=== PATIENT | male | born 1965 | race Caucasian/White ===

== ENCOUNTER 2016-05-26 12:23 | Emergency (ER) | payer SELFPAY ==
[2016-05-26 12:39] VITALS: TEMP 97.5; BMI 24.3
--- NOTE | 2016-05-26 13:44 | PDOC ---
History of Present Illness - General History Source: Patient Exam Limitations: No Limitations - History of Present Illness Initial Comments: 05/26/16 14:08 The patient is a 51 year old male with no significant past medical history who presents to the ED with complaints of progressively worsening nausea for 2 months. The patient reports he was recently incarcerated and returned home on . The patient reports nausea, vomiting, and generalized weakness since returning home. The patient reports multiple episodes of vomiting with yellow colored sputum every day. The patient reports a loss of appetite and a weight loss of 5 pounds. Patient reports passing normal bowel movements. The patient reports he typically eats home cooked meals consisting of rice, beans, potatoes, vegetables and chicken. Denies fevers or chills. Denies abdominal pain, abdominal distention or diarrhea. Denies chest pain or shortness of breath. Denies dysuria or difficulty urinating. Denies any other symptoms. <Nitesh Tejada - Last Filed: 05/26/16 18:18> <Hans Brunson - Last Filed: 05/26/16 18:31> - General Chief Complaint: Nausea/Vomiting Stated Complaint: ABD PAIN, VOMITING Time Seen by Provider: 05/26/16 13:44 Past History <Nitesh Tejada - Last Filed: 05/26/16 18:18> - Past Medical History Anemia: No Asthma: No Cancer: No Cardiac Disorders: No CVA: No COPD: No CHF: No Dementia: No Diabetes: No GI Disorders: No Disorders: No HTN: No Hypercholesterolemia: No Kidney Stones: No Liver Disease: No Suicide Attempt (Hx): No Seizures: No Thyroid Disease: No Other medical history: DENIES. - Surgical History Abdominal Surgery: No Appendectomy: No Cardiac Surgery: No Cholecystectomy: No Lung Surgery: No Neurologic Surgery: No Orthopedic Surgery: No - Reproductive History Testicular Surgery: No - Psycho/Social/Smoking Cessation Hx Anxiety: No Suicidal Ideation: No Smoking History: Former smoker Have you smoked in the past 12 months: No Number of Cigarettes Smoked Daily: 5 Cigars Per Day: 0 Information on smoking cessation initiated: No 'Breaking Loose' booklet given: 08/04/13 Hx Alcohol Use: Yes Drug/Substance Use Hx: Yes Substance Use Type: Alcohol, Cocaine, Heroin Hx Substance Use Treatment: Yes (2011) <Hans Brunson - Last Filed: 05/26/16 18:31> - Past Medical History Allergies/Adverse Reactions: Allergies Allergy/AdvReac Type Severity Reaction Status Date / Time No Known Allergies Allergy Verified 05/26/16 12:35 Home Medications: Ambulatory Orders No Home Medications 0 dose .ROUTE UTDICT 08/01/13 Ondansetron [Ondansetron Odt] 8 mg PO TID #30 tab.rapdis 05/26/16 Review of Systems - Review of Systems Able to Perform ROS?: Yes Comments:: 05/26/16 14:08 GENERAL/CONSTITUTIONAL:+ general weakness. No fever or chills. HEAD, EYES, EARS, NOSE AND THROAT: No change in vision. No ear pain or discharge. No sore throat. CARDIOVASCULAR: No chest pain or shortness of breath. RESPIRATORY: No cough, wheezing, or hemoptysis. GASTROINTESTINAL: + nausea, vomiting. No diarrhea or constipation. GENITOURINARY: No dysuria, frequency, or change in urination. MUSCULOSKELETAL: No joint or muscle swelling or pain. No neck or back pain. SKIN: No rash NEUROLOGIC: No headache, vertigo, loss of consciousness, or change in strength/ sensation. ENDOCRINE: No increased thirst. No abnormal weight change. HEMATOLOGIC/LYMPHATIC: No anemia, easy bleeding, or history of blood clots. ALLERGIC/IMMUNOLOGIC: No hives or skin allergy. All Other Systems: Reviewed and Negative <Nitesh Tejada - Last Filed: 05/26/16 18:18> *Physical Exam - Vital Signs Last Vital Signs Temp Pulse Resp BP Pulse Ox 97.5 F L 53 L 19 120/76 97 05/26/16 12:35 05/26/16 12:35 05/26/16 12:35 05/26/16 12:35 05/26/16 12:35 - Physical Exam Comments: 05/26/16 14:08 GENERAL: Awake, alert, and fully oriented, in no acute distress HEAD: No signs of trauma EYES: PERRLA, EOMI, sclera anicteric, conjunctiva clear ENT: Auricles normal inspection, hearing grossly normal, nares patent, oropharynx clear without exudates. Moist mucosa NECK: Normal ROM, supple, no lymphadenopathy, JVD, or masses LUNGS: Breath sounds equal, clear to auscultation bilaterally. No wheezes, and no crackles HEART: Regular rate and rhythm, normal S1 and S2, no murmurs, rubs or gallops ABDOMEN: Soft, nontender, normoactive bowel sounds. No guarding, no rebound. No masses EXTREMITIES: Normal range of motion, no edema. No clubbing or cyanosis. No cords, erythema, or tenderness NEUROLOGICAL: Cranial nerves II through XII grossly intact. Normal speech, normal gait SKIN: Warm, Dry, normal turgor, no rashes or lesions noted. <Nitesh Tejada - Last Filed: 05/26/16 18:18> - Vital Signs Last Vital Signs Temp Pulse Resp BP Pulse Ox 97.5 F L 53 L 19 120/76 97 05/26/16 12:35 05/26/16 12:35 05/26/16 12:35 05/26/16 12:35 05/26/16 12:35 <Hans Brunson - Last Filed: 05/26/16 18:31> ED Treatment Course - LABORATORY CBC & Chemistry Diagram: 05/26/16 14:13 05/26/16 14:13 - RADIOLOGY Radiograph Interpretation: 05/26/16 18:18 EXAM: CT ABDOMEN AND PELVIS WITH CONTRAST IMPRESSION: No bowel obstruction, colitis, diverticulitis, free fluid or free air. Normal appendix. Unremarkable pancreas and gallbladder. Left renal cyst. Reported by: Imaging communications administrator, Betty Smith M.D <Nitesh Tejada - Last Filed: 05/26/16 18:18> - LABORATORY CBC & Chemistry Diagram: 05/26/16 14:13 05/26/16 14:13 <Hans Brunson - Last Filed: 05/26/16 18:31> *DC/Admit/Observation/Transfer - Attestations Scribe Attestion: 05/26/16 14:08 Documentation prepared by Nitesh Tejada, acting as medical office supervisor for Hans Brunson MD <Nitesh Tejada - Last Filed: 05/26/16 18:18> - Attestations Physician Attestion: 05/26/16 13:44 I, Dr. Hans Brunson, attest that this document has been prepared under my direction and personally reviewed by me in its entirety. I further attest, that it accurately reflects all work, treatment, procedures and medical decision -making performed by me. <Hans Brunson - Last Filed: 05/26/16 18:31> Diagnosis at time of Disposition: Nausea & vomiting Qualifiers: Vomiting type: bilious vomiting Qualified Code(s): R11.14 - Bilious vomiting - Discharge Dispostion Disposition: HOME Condition at time of disposition: Good - Prescriptions Prescriptions: Ondansetron [Ondansetron Odt] 8 mg PO TID #30 tab.rapdis - Referrals Referrals: Dylan Posadas MD [Staff Physician] - - Patient Instructions Additional Instructions: Use the zofran for nausea. Call Dr. Posadas for Follow Up. Return to us if worse or new symptoms.
[2016-05-26] MEDS ORDERED: ONDANSETRON 4 MG/2 ML VIAL ONE (14:15)
[2016-05-26 14:22] LABS: URINE APPEARANCE CLEAR; URINE BILIRUBIN NEGATIVE (NEGATIVE); URINE BLOOD NEGATIVE (NEGATIVE); URINE COLOR YELLOW; URINE GLUCOSE (UA) NEGATIVE (NEGATIVE); URINE KETONE NEGATIVE (NEGATIVE); URINE LEUK ESTERASE NEGATIVE (NEGATIVE); URINE NITRITE NEGATIVE (NEGATIVE); URINE PROTEIN NEGATIVE (NEGATIVE); URINE UROBILINOGEN NEGATIVE E.U./dl (0.2-1.0)
[2016-05-26] MEDS ORDERED: ONDANSETRON 4 MG/2 ML VIAL IVPUSH ONE (14:22)
[2016-05-26 14:33] LABS: BASOPHIL 0.4 % (0-2.0); EOSINOPHIL 0.3 % (0-4.5); MCHC 32.8 g/dl (32.0-35.9); MEAN CELL VOLUME 91.5 fl (80-96); NEUTROPHILS 69.7 % (42.8-82.8); PLATELET COUNT 195 K/MM3 (134-434); RDW 12.7 % (11.9-15.9); WHITE BLOOD COUNT 5.4 K/mm3 (4.0-10.0)
[2016-05-26 14:52] LABS: INR 1.22 (0.82-1.09); PROTHROMBIN TIME (PATIENT) 13.5 SEC (9.98-11.88)
[2016-05-26 15:01] LABS: ALBUMIN 4.1 g/dl (3.4-5.0); ANION GAP 7 (8-16); BILIRUBIN,TOTAL 0.6 mg/dL (0.2-1.0); CALCIUM 9.1 mg/dL (8.5-10.1); CO2 31 mmol/L (21-32); CREATININE 1.2 mg/dL (0.7-1.3); GLUCOSE,RANDOM 91 mg/dL (74-106); SGOT/AST 33 U/L (15-37); SGPT/ALT 70 U/L (12-78); TOT PROT 7.6 g/dl (6.4-8.2)
[2016-05-26 15:02] LABS: ALK PHOS 59 U/L (45-117)
[2016-05-26 15:50] LABS: URINE MARIJUANA THC POSITIVE ng/ml (CUTOFF=50)
[2016-05-26 18:25] VITALS: BP 130/83; PULSE 94
== END 2016-05-26 18:36 | disposition home or self-care (01) ==
LOC: JER 12:23
PROC: 3E033GC Introduction of Other Therapeutic Substance into Peripheral Vein, Percutaneous Approach (ICD-10-PCS; principal; 2016-05-26)
DX: R11.14 Bilious vomiting (principal)
CPT/HCPCS: 36415; 74177-TC; 80053; 80307; 81003; 83690; 85025; 85610; 96374; 99283-25; Q9967

== ENCOUNTER 2017-07-14 14:31 | Inpatient (IN) | payer OTHER ==
[2017-07-14 17:17] VITALS: BMI 24.3
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
[2017-07-14] MEDS ORDERED: MAGNESIUM HYDROX 2400MG/30ML ORAL SUSPENSION 30 ML CUP PO PRN (18:48)
[2017-07-14] MEDS ORDERED: METHADONE HCL 10 MG TABLET (FOR DETOX USE ONLY) PO ONE ×2 (18:48→23:00)
[2017-07-14] MEDS ORDERED: P-EPHED 60MG/TRIPROLIDI 2.5MG TABLET PO PRN (18:48)
[2017-07-14] MEDS ORDERED: ACETAMINOPHEN 325 MG TABLET (FP) PO PRN (18:48)
[2017-07-14] MEDS ORDERED: NICOTINE POLACRILEX 2 MG GUM BC PRN (18:48)
[2017-07-14] MEDS ORDERED: IBUPROFEN 400 MG TABLET (FP) PO PRN (18:48)
[2017-07-14] MEDS ORDERED: MENTHOL/PHENOL 1 EACH UD MM PRN (18:48)
[2017-07-14] MEDS ORDERED: MAGNESIUM CITRATE 300 ML BOTTLE PO PRN (18:48)
[2017-07-14] MEDS ORDERED: guaiFENesin/D-METHORPHAN HB 10 ML UNIT-DOSE CUPS PO PRN (18:48)
[2017-07-14] MEDS ORDERED: MAG HYDROX/AL HYDROX/SIMETH 30 ML UNIT-DOSE CUP PO PRN (18:48)
[2017-07-14] MEDS ORDERED: LOPERAMIDE HCL 2 MG CAPSULE PO PRN (18:48)
[2017-07-14] MEDS: LIDOCAINE 5% TOPICAL PATCH TP SCH (19:25)
[2017-07-14] MEDS: diazePAM 5 MG TABLET PO PRN (19:29)
[2017-07-14] MEDS ORDERED: MELATONIN 5 MG TABLETS PO PRN (22:00)
[2017-07-14] MEDS: THIAMINE HCL 100 MG TABLET (FP) PO SCH (22:28)
[2017-07-14] MEDS: hydrOXYzine PAMOATE 50 MG CAPSULE (FP) PO PRN (22:30)
[2017-07-14] MEDS: LIDOCAINE PATCH REMOVAL MC SCH (22:30)
[2017-07-14 23:13] LABS: URINE APPEARANCE CLEAR; URINE BILIRUBIN NEGATIVE (<2.0 mg/dL); URINE COLOR YELLOW; URINE GLUCOSE (UA) NEGATIVE (NEGATIVE); URINE KETONE NEGATIVE (NEGATIVE); URINE LEUK ESTERASE NEGATIVE (NEGATIVE); URINE NITRITE NEGATIVE (NEGATIVE); URINE PROTEIN NEGATIVE (NEGATIVE); URINE UROBILINOGEN NEGATIVE mg/dL (0.2-1.0)
[2017-07-15 09:51] LABS: HEMATOCRIT 40.7 % (35.4-49); HEMOGLOBIN 13.8 GM/dL (11.7-16.9); MCH 30.9 pg (25.7-33.7); MEAN CELL VOLUME 90.9 fl (80-96); MEAN PLT VOLUME 8.3 fl (7.5-11.1); PLATELET COUNT 248 K/MM3 (134-434); RBC 4.47 M/mm3 (4.00-5.60); RDW 13.7 % (11.9-15.9); WHITE BLOOD COUNT 4.9 K/mm3 (4.0-10.0)
--- NOTE | 2017-07-15 09:52 | EKG ---
Test Reason : Blood Pressure : / mmHG Vent. Rate : 060 BPM Atrial Rate : 060 BPM P-R Int : 152 ms QRS Dur : 084 ms QT Int : 386 ms P-R-T Axes : 072 057 054 degrees QTc Int : 386 ms NORMAL SINUS RHYTHM NORMAL ECG NO PREVIOUS ECGS AVAILABLE Confirmed by MD Lorena, Damaso ([id number]) on 07/15/2017 9:52:05 AM Referred By: Confirmed By:Damaso Carrillo MD
[2017-07-15] MEDS: PRENATAL VITAMINS W/ FOLIC ACID TABLET (FP) PO SCH (09:55)
[2017-07-15] MEDS: diazePAM 5 MG TABLET PO PRN ×2 (09:55→18:50)
[2017-07-15] MEDS: NICOTINE 14 MG/24 HOURS TOPICAL PATCH TD SCH (09:56)
[2017-07-15] MEDS ORDERED: METHADONE HCL 10 MG TABLET (FOR DETOX USE ONLY) PO ONE (10:00)
[2017-07-15 10:01] LABS: CHLORIDE 104 mmol/L (98-107); POTASSIUM 4.3 mmol/L (3.5-5.1); SODIUM 140 mmol/L (136-145)
[2017-07-15 10:32] LABS: ALBUMIN 3.1 g/dl (3.4-5.0); ALK PHOS 57 U/L (45-117); ANION GAP 6 (8-16); BILIRUBIN,TOTAL 0.2 mg/dL (0.2-1.0); BLOOD UREA NITROGEN 13 mg/dL (7-18); CALCIUM 8.6 mg/dL (8.5-10.1); CO2 30 mmol/L (21-32); CREATININE 0.9 mg/dL (0.7-1.3); GLUCOSE,RANDOM 86 mg/dL (74-106); SGOT/AST 23 U/L (15-37); SGPT/ALT 40 U/L (12-78); TOT PROT 6.5 g/dl (6.4-8.2)
[2017-07-15] MEDS: LIDOCAINE 5% TOPICAL PATCH TP SCH (10:41)
--- NOTE | 2017-07-15 12:14 | PN ---
BHS COWS - Scale Resting Pulse: 0= [place] 80 or Below Sweatin= Chills/Flushing Restless Observation: 1= Difficult to Sit Still Pupil Size: 0= Normal to Room Light Bone or Joint Aches: 0= None Runny Nose/ Eye Tearin= None GI Upset > 30mins: 2= Nausea/Diarrhea Tremor Observation of Outstretched Hands: 2= Slight Tremor Visible Yawning Observation: 1= 1-2x During Session Anxiety or Irritability: 2=Irritable/Anxious Goose Flesh Skin: 3=Piloerection COWS Score: 12 BHS Progress Note (SOAP) Subjective: Tremors, Fatigue, Sweating, Nausea, Anxious. Objective: PATIENT A & O X 3, OBSERVED AMBULATING ON UNIT. NO ACUTE DISTRESS. 07/15/17 12:13 Vital Signs Temperature 97.2 F L 07/15/17 10:06 Pulse Rate 64 07/15/17 10:06 Respiratory Rate 18 07/15/17 10:06 Blood Pressure 108/68 07/15/17 10:06 O2 Sat by Pulse Oximetry (%) Laboratory Tests 07/14/17 07/15/17 07/15/17 18:17 07:30 07:30 WBC 4.9 RBC 4.47 Hgb 13.8 D Hct 40.7 MCV 90.9 MCH 30.9 MCHC 34.0 RDW 13.7 Plt Count 248 D MPV 8.3 Sodium 140 Potassium 4.3 Chloride 104 Carbon Dioxide 30 Anion Gap 6 L BUN 13 D Creatinine 0.9 D Creat Clearance w eGFR > 60 Random Glucose 86 Calcium 8.6 Total Bilirubin 0.2 D AST 23 D ALT 40 D Alkaline Phosphatase 57 Total Protein 6.5 Albumin 3.1 L D Urine Color Yellow Urine Appearance Clear Urine pH 5.0 Ur Specific [place] 1.021 Urine Protein Negative Urine Glucose (UA) Negative Urine Ketones Negative Urine Blood Negative Urine Nitrite Negative Urine Bilirubin Negative Urine Urobilinogen Negative Ur Leukocyte Esterase Negative LABS NOTED. RPR RESULT PENDING. 07/15/17 12:14 Assessment: 07/15/17 12:13 WITHDRAWAL SYMPTOMS. Plan: CONTINUE DETOX.
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
[2017-07-15] MEDS: THIAMINE HCL 100 MG TABLET (FP) PO SCH (22:20)
[2017-07-15] MEDS: ZOLPIDEM TARTRATE 10 MG TABLET (PARK CARE ONLY) PO PRN (22:22)
[2017-07-15] MEDS: LIDOCAINE PATCH REMOVAL MC SCH (22:41)
[2017-07-16] MEDS: diazePAM 5 MG TABLET PO PRN ×4 (03:56→20:06)
[2017-07-16] MEDS ORDERED: METHADONE HCL 5 MG TABLET (FOR DETOX USE ONLY) PO ONE (10:00)
[2017-07-16] MEDS: PRENATAL VITAMINS W/ FOLIC ACID TABLET (FP) PO SCH (10:15)
[2017-07-16] MEDS: LIDOCAINE 5% TOPICAL PATCH TP SCH (10:16)
[2017-07-16] MEDS: NICOTINE 14 MG/24 HOURS TOPICAL PATCH TD SCH (10:16)
--- NOTE | 2017-07-16 11:42 | PN ---
BHS COWS - Scale Resting Pulse: 0= [place] 80 or Below Sweatin= No chills or Flushing Restless Observation: 1= Difficult to Sit Still Pupil Size: 0= Normal to Room Light Bone or Joint Aches: 2= Severe Diffuse Aches Runny Nose/ Eye Tearin= None GI Upset > 30mins: 2= Nausea/Diarrhea Tremor Observation of Outstretched Hands: 2= Slight Tremor Visible Yawning Observation: 0= None Anxiety or Irritability: 4=Extreme Anxiety Goose Flesh Skin: 3=Piloerection COWS Score: 14 BHS Progress Note (SOAP) Subjective: Nausea, Tremors, Anxious, Body Aches. Objective: PATIENT A & O X 3, OBSERVED AMBULATING ON UNIT. NO ACUTE DISTRESS. 07/16/17 11:34 Vital Signs Temperature 96.0 F L 07/16/17 09:10 Pulse Rate 61 07/16/17 09:10 Respiratory Rate 18 07/16/17 09:10 Blood Pressure 157/89 07/16/17 09:10 O2 Sat by Pulse Oximetry (%) Laboratory Tests 07/14/17 07/15/17 07/15/17 18:17 07:30 07:30 WBC 4.9 RBC 4.47 Hgb 13.8 D Hct 40.7 MCV 90.9 MCH 30.9 MCHC 34.0 RDW 13.7 Plt Count 248 D MPV 8.3 Sodium 140 Potassium 4.3 Chloride 104 Carbon Dioxide 30 Anion Gap 6 L BUN 13 D Creatinine 0.9 D Creat Clearance w eGFR > 60 Random Glucose 86 Calcium 8.6 Total Bilirubin 0.2 D AST 23 D ALT 40 D Alkaline Phosphatase 57 Total Protein 6.5 Albumin 3.1 L D Urine Color Yellow Urine Appearance Clear Urine pH 5.0 Ur Specific [place] 1.021 Urine Protein Negative Urine Glucose (UA) Negative Urine Ketones Negative Urine Blood Negative Urine Nitrite Negative Urine Bilirubin Negative Urine Urobilinogen Negative Ur Leukocyte Esterase Negative RPR Titer 07/15/17 07:30 WBC RBC Hgb Hct MCV MCH MCHC RDW Plt Count MPV Sodium Potassium Chloride Carbon Dioxide Anion Gap BUN Creatinine Creat Clearance w eGFR Random Glucose Calcium Total Bilirubin AST ALT Alkaline Phosphatase Total Protein Albumin Urine Color Urine Appearance Urine pH Ur Specific [place] Urine Protein Urine Glucose (UA) Urine Ketones Urine Blood Urine Nitrite Urine Bilirubin Urine Urobilinogen Ur Leukocyte Esterase RPR Titer Nonreactive LABS NOTED. Assessment: 07/16/17 11:34 WITHDRAWAL SYMPTOMS. Plan: CONTINUE DETOX. INCREASE DAILY PO FLUID INTAKE. CLONIDINE, 0.1 MG PO X 1 ORDERED FOR ELEVATED BP AND FOR DETOX SYMPTOMS. WITH ASSISTANCE FROM MACHINE INSPECTOR Liana BARRETO, ARRANGEMENTS MADE (AT PATIENT'S REQUEST) TO GO TO 'POSITIVE DIRECTION' OUTPATIENT / MMTP PROGRAM ([facility] ) FOR INTAKE ON FRIDAY. WITH PATIENT'S APPROVAL, PATIENT'S CURRENT DETOX MEDICATION REGIMEN MODIFIED ACCORDINGLY.
[2017-07-16] MEDS ORDERED: cloNIDine HCL 0.1 MG TABLET PO ONE (13:00)
[2017-07-16] MEDS: ZOLPIDEM TARTRATE 10 MG TABLET (PARK CARE ONLY) PO PRN (22:18)
[2017-07-16] MEDS: THIAMINE HCL 100 MG TABLET (FP) PO SCH (22:18)
[2017-07-16] MEDS: LIDOCAINE PATCH REMOVAL MC SCH (22:19)
[2017-07-17] MEDS: diazePAM 5 MG TABLET PO PRN ×3 (05:50→17:57)
[2017-07-17] MEDS ORDERED: METHADONE HCL 5 MG TABLET (FOR DETOX USE ONLY) PO ONE (10:00)
[2017-07-17] MEDS ORDERED: METHADONE HCL 10 MG TABLET (FOR DETOX USE ONLY) PO ONE (10:00)
[2017-07-17] MEDS: PRENATAL VITAMINS W/ FOLIC ACID TABLET (FP) PO SCH (10:11)
[2017-07-17] MEDS: NICOTINE 14 MG/24 HOURS TOPICAL PATCH TD SCH (10:42)
[2017-07-17] MEDS: LIDOCAINE 5% TOPICAL PATCH TP SCH (10:42)
--- NOTE | 2017-07-17 14:11 | PN ---
BHS Progress Note (SOAP) Subjective: Anxious, Body Aches, Sweating. Objective: PATIENT A & O X 3, OBSERVED AMBULATING ON UNIT. NO ACUTE DISTRESS. 07/17/17 14:09 Vital Signs Temperature 97.2 F L 07/17/17 13:30 Pulse Rate 89 07/17/17 13:30 Respiratory Rate 20 07/17/17 13:30 Blood Pressure 103/77 07/17/17 13:30 O2 Sat by Pulse Oximetry (%) Laboratory Tests 07/14/17 07/15/17 07/15/17 18:17 07:30 07:30 WBC 4.9 RBC 4.47 Hgb 13.8 D Hct 40.7 MCV 90.9 MCH 30.9 MCHC 34.0 RDW 13.7 Plt Count 248 D MPV 8.3 Sodium 140 Potassium 4.3 Chloride 104 Carbon Dioxide 30 Anion Gap 6 L BUN 13 D Creatinine 0.9 D Creat Clearance w eGFR > 60 Random Glucose 86 Calcium 8.6 Total Bilirubin 0.2 D AST 23 D ALT 40 D Alkaline Phosphatase 57 Total Protein 6.5 Albumin 3.1 L D Urine Color Yellow Urine Appearance Clear Urine pH 5.0 Ur Specific [place] 1.021 Urine Protein Negative Urine Glucose (UA) Negative Urine Ketones Negative Urine Blood Negative Urine Nitrite Negative Urine Bilirubin Negative Urine Urobilinogen Negative Ur Leukocyte Esterase Negative RPR Titer 07/15/17 07:30 WBC RBC Hgb Hct MCV MCH MCHC RDW Plt Count MPV Sodium Potassium Chloride Carbon Dioxide Anion Gap BUN Creatinine Creat Clearance w eGFR Random Glucose Calcium Total Bilirubin AST ALT Alkaline Phosphatase Total Protein Albumin Urine Color Urine Appearance Urine pH Ur Specific [place] Urine Protein Urine Glucose (UA) Urine Ketones Urine Blood Urine Nitrite Urine Bilirubin Urine Urobilinogen Ur Leukocyte Esterase RPR Titer Nonreactive LABS NOTED. Assessment: 07/17/17 14:10 WITHDRAWAL SYMPTOMS. Plan: CONTINUE DETOX. INCREASE DAILY PO FLUID INTAKE. PATIENT SCHEDULED FOR DISCHARGE TOMORROW.
[2017-07-17 22:24] VITALS: PULSE 81
[2017-07-17] MEDS: ZOLPIDEM TARTRATE 10 MG TABLET (PARK CARE ONLY) PO PRN (22:45)
[2017-07-17] MEDS: hydrOXYzine PAMOATE 50 MG CAPSULE (FP) PO PRN (22:45)
[2017-07-17] MEDS: THIAMINE HCL 100 MG TABLET (FP) PO SCH (22:45)
[2017-07-17] MEDS: LIDOCAINE PATCH REMOVAL MC SCH (22:46)
[2017-07-18] MEDS ORDERED: METHADONE HCL 5 MG TABLET (FOR DETOX USE ONLY) PO ONE (06:00)
[2017-07-18 06:10] VITALS: BP 119/79; TEMP 96.8
[2017-07-18] MEDS ORDERED: METHADONE HCL 10 MG TABLET (FOR DETOX USE ONLY) PO ONE (10:00)
--- NOTE | 2017-07-18 15:18 | PN ---
S Progress Note (SOAP) Subjective: Patient denies current Detox symptoms and reports that he feels well overall. Objective: PATIENT A & O X 3, OBSERVED AMBULATING ON UNIT. NO ACUTE DISTRESS. 07/18/17 15:17 Laboratory Tests 07/14/17 07/15/17 07/15/17 18:17 07:30 07:30 WBC 4.9 RBC 4.47 Hgb 13.8 D Hct 40.7 MCV 90.9 MCH 30.9 MCHC 34.0 RDW 13.7 Plt Count 248 D MPV 8.3 Sodium 140 Potassium 4.3 Chloride 104 Carbon Dioxide 30 Anion Gap 6 L BUN 13 D Creatinine 0.9 D Creat Clearance w eGFR > 60 Random Glucose 86 Calcium 8.6 Total Bilirubin 0.2 D AST 23 D ALT 40 D Alkaline Phosphatase 57 Total Protein 6.5 Albumin 3.1 L D Urine Color Yellow Urine Appearance Clear Urine pH 5.0 Ur Specific [place] 1.021 Urine Protein Negative Urine Glucose (UA) Negative Urine Ketones Negative Urine Blood Negative Urine Nitrite Negative Urine Bilirubin Negative Urine Urobilinogen Negative Ur Leukocyte Esterase Negative RPR Titer 07/15/17 07:30 WBC RBC Hgb Hct MCV MCH MCHC RDW Plt Count MPV Sodium Potassium Chloride Carbon Dioxide Anion Gap BUN Creatinine Creat Clearance w eGFR Random Glucose Calcium Total Bilirubin AST ALT Alkaline Phosphatase Total Protein Albumin Urine Color Urine Appearance Urine pH Ur Specific [place] Urine Protein Urine Glucose (UA) Urine Ketones Urine Blood Urine Nitrite Urine Bilirubin Urine Urobilinogen Ur Leukocyte Esterase RPR Titer Nonreactive LABS NOTED. Assessment: 07/18/17 15:18 COMPLETION OF DETOX REGIMEN. Plan: PATIENT SCHEDULED FOR DISCHARGE FROM DETOX UNIT TODAY.
--- NOTE | 2017-07-18 15:24 | DS ---
[facility] Detox Discharge Summary Admission Date: 07/14/17 Discharge Date: 07/18/17 - History Present History: Cannabis Dependence, Opioid Dependence Additional Comments: PATIENT GOING TO '[facility] DIRE[facility]' [facility]/OUTPATIENT PROGRAM ([place]) FOR AFTERCARE. PATIENT WAS DISCHARGED FROM DETOX UNIT IN STABLE MEDICAL CONDITION. Pertinent Past History: Hep C, Insomnia, Depression, Cataract, History of Nodule of Finger of Right Hand , Low Back Pain, Weight Loss. - Physical Exam Results Vital Signs: Vital Signs Temperature 96.8 F L 07/18/17 06:10 Pulse Rate 81 07/18/17 06:10 Respiratory Rate 18 07/18/17 06:10 Blood Pressure 119/79 07/18/17 06:10 O2 Sat by Pulse Oximetry (%) Pertinent Admission Physical Exam Findings: WITHDRAWAL SYMPTOMS. Laboratory Tests 07/14/17 07/15/17 07/15/17 18:17 07:30 07:30 WBC 4.9 RBC 4.47 Hgb 13.8 D Hct 40.7 MCV 90.9 MCH 30.9 MCHC 34.0 RDW 13.7 Plt Count 248 D MPV 8.3 Sodium 140 Potassium 4.3 Chloride 104 Carbon Dioxide 30 Anion Gap 6 L BUN 13 D Creatinine 0.9 D Creat Clearance w eGFR > 60 Random Glucose 86 Calcium 8.6 Total Bilirubin 0.2 D AST 23 D ALT 40 D Alkaline Phosphatase 57 Total Protein 6.5 Albumin 3.1 L D Urine Color Yellow Urine Appearance Clear Urine pH 5.0 Ur Specific [place] 1.021 Urine Protein Negative Urine Glucose (UA) Negative Urine Ketones Negative Urine Blood Negative Urine Nitrite Negative Urine Bilirubin Negative Urine Urobilinogen Negative Ur Leukocyte Esterase Negative RPR Titer 07/15/17 07:30 WBC RBC Hgb Hct MCV MCH MCHC RDW Plt Count MPV Sodium Potassium Chloride Carbon Dioxide Anion Gap BUN Creatinine Creat Clearance w eGFR Random Glucose Calcium Total Bilirubin AST ALT Alkaline Phosphatase Total Protein Albumin Urine Color Urine Appearance Urine pH Ur Specific [place] Urine Protein Urine Glucose (UA) Urine Ketones Urine Blood Urine Nitrite Urine Bilirubin Urine Urobilinogen Ur Leukocyte Esterase RPR Titer Nonreactive LABS NOTED. - Treatment Hospital Course: Detox Protocol Followed, Detoxed Safely, Responded well, Discharged Condition Good Patient has Accepted a Rehab Referral to: PT. GOING TO '[facility]ITIVE DIRECTIONS' [facility]PATIENT PROGRAM [place] - Medication Discharge Medications: Ambulatory Orders NK [No Known Home Medication] 07/14/17 - Diagnosis (1) Depression (emotion) Status: Acute Qualifiers: Depression Type: dysthymia Qualified Code(s): F34.1 - Dysthymic disorder (2) IV drug user Status: Acute (3) Low back pain Status: Acute Qualifiers: Chronicity: acute Back pain laterality: bilateral Sciatica presence: without sciatica Qualified Code(s): M54.5 - Low back pain (4) Nicotine dependence Status: Acute Qualifiers: Nicotine product type: cigarettes Substance use status: uncomplicated Qualified Code(s): F17.210 - Nicotine dependence, cigarettes, uncomplicated (5) Nodule of finger of right hand Status: Acute (6) Opioid dependence with withdrawal Status: Acute (7) Weight loss Status: Acute (8) Hepatitis C carrier Status: Chronic (9) Cataract Status: Chronic Qualifiers: Cataract type: unspecified Laterality: left Qualified Code(s): H26.9 - Unspecified cataract (10) Drug-induced mood disorder Status: Acute (11) Insomnia Status: Acute Qualifiers: Insomnia type: unspecified Qualified Code(s): G47.00 - Insomnia, unspecified - AMA Did Patient Leave Against Medical Advice: No
[2017-07-19] MEDS ORDERED: METHADONE HCL 5 MG TABLET (FOR DETOX USE ONLY) PO ONE (06:00)
== END 2017-07-18 06:25 | disposition home or self-care (01) | DRG 773 ==
LOC: YASAS 14:31 → Y3N 17:30
PROVIDERS: ADMIT Internal Medicine; ATTEND Internal Medicine
PROC: HZ2ZZZZ Detoxification Services for Substance Abuse Treatment (ICD-10-PCS; principal; 2017-07-14)
DX: F11.23 Opioid dependence with withdrawal (principal); F12.20 Cannabis dependence, uncomplicated; F17.210 Nicotine dependence, cigarettes, uncomplicated; F34.1 Dysthymic disorder; F19.24 Other psychoactive substance dependence with psychoactive substance-induced mood disorder; B18.2 Chronic viral hepatitis C; M54.5 Low back pain; R22.31 Localized swelling, mass and lump, right upper limb; H26.8 Other specified cataract; R63.4 Abnormal weight loss; Z68.24 Body mass index [BMI] 24.0-24.9, adult; Z91.5 Personal history of self-harm
CPT/HCPCS: 36415; 80053; 81003; 85027; 86593; 93005; 93010; J0735